=== PATIENT | female | born 1985 | race Two or more races ===

== ENCOUNTER 2023-10-21 19:40 | Inpatient (IN) | payer MEDICAID ==
[~2023-10-21] VITALS: Ht 160 cm; Wt 63.0 kg
[2023-10-21 20:09] LABS: BASOPHILS % (AUTO) 0.9 % (0.0-2.0); EOSINOPHILS % (AUTO) 1.6 % (1.0-6.0); HEMATOCRIT 40.8 % (36-46); HEMOGLOBIN 13.6 g/dL (12.0-16.0); LYMPHOCYTES # (AUTO) 1.3 K/uL (1.0-4.8); LYMPHOCYTES % (AUTO) 25.5 % (22.0-44.0); MEAN CORPUSCULAR HEMOGLOBIN 32.5 pg (26.0-34.0); MEAN CORPUSCULAR HGB CONC 33.4 G/dL (31.0-37.0); MEAN CORPUSCULAR VOLUME 97 fL (80-100); MONOCYTES # (AUTO) 0.4 K/uL (0.1-1.0); MONOCYTES % (AUTO) 8.4 % (2.0-9.0); NEUTROPHILS # (AUTO) 3.1 K/uL (1.8-7.7); NEUTROPHILS % (AUTO) 63.6 % (40.0-70.0); PLATELET COUNT (AUTO) 110 K/uL (150-450); RED BLOOD CELL COUNT(AUTO) 4.19 MIL/uL (4.00-5.20); RED CELL DISTRIBUTION WIDTH 14.4 % (11.5-14.5); WHITE BLOOD COUNT (AUTO) 4.9 K/uL (4.5-11.0)
[2023-10-21 20:27] LABS: ALCOHOL, BLOOD (SERUM) 344 mg/dL (0-10)
[2023-10-21 20:28] LABS: CARBON DIOXIDE 24 mmol/L (22-29); CHLORIDE 101 mmol/L (98-107); SODIUM SERUM 140 mmol/L (136-145)
[2023-10-21 20:29] LABS: ACETAMINOPHEN 21 mcg/mL (10-30); ALANINE AMINOTRANSFERASE 74 U/L (12-78); ALBUMIN 3.8 g/dL (3.4-5.0); ALKALINE PHOSPHATASE 71 U/L (46-116); ANION GAP 15 mmol/L (8-16); ASPARTATE AMINOTRANSFERASE 187 U/L (15-37); BILIRUBIN,TOTAL 0.3 mg/dL (0.1-1.0); CALCIUM, TOTAL 9.1 mg/dL (8.8-10.5); CREATININE 0.62 mg/dL (0.60-1.30); GLOMERULAR FILTR. RATE CALC > 60 mL/min (>60); GLUCOSE,RANDOM 83 mg/dL (70-110); HCG,QUANTITATIVE < 1 mIU/mL (0-6); TOTAL PROTEIN, SERUM 7.9 g/dL (6.4-8.2); UREA NITROGEN, BLOOD 12 mg/dL (7-18)
[2023-10-21 20:41] LABS: SALICYLATE 1.4 mg/dL (2.8-20.0)
[2023-10-21] MEDS: SODIUM CHLORIDE 0.9% 1,000 ML IV ONE ×2 (20:53)
[2023-10-21] MEDS: POTASSIUM CHLORIDE 10% 40 MEQ/30 ML LIQUID UDCUP PO ONE (21:47)
[2023-10-22] MEDS: LORazepam 2 MG TABLET PO PRN (07:31)
[2023-10-22 07:34] LABS: ALCOHOL, URINE DRUG SCREEN POSITIVE (NEGATIVE); AMPHET/METH SCREEN,URINE NEGATIVE (NEGATIVE); BARBITURATE SCREEN, URINE NEGATIVE (NEGATIVE); BENZODIAZEPINES SCREEN,URINE NEGATIVE (NEGATIVE); CANNABINOID SCREEN,URINE NEGATIVE (NEGATIVE); COCAINE SCREEN,URINE NEGATIVE (NEGATIVE); METHADONE SCREEN, URINE NEGATIVE (NEGATIVE); OPIATE SCREEN,URINE NEGATIVE (NEGATIVE); PHENCYCLIDINE SCREEN,URINE NEGATIVE (NEGATIVE)
[2023-10-22 07:41] LABS: APPEARANCE,URINE CLEAR (CLEAR); BILIRUBIN,URINE NEGATIVE (NEGATIVE); COLOR,URINE LIGHT YELLOW (YELLOW); GLUCOSE, URINE (UA) NEGATIVE (NEGATIVE); LEUKOCYTE ESTERASE ,URINE NEGATIVE (NEGATIVE); NITRATE,URINE POSITIVE (NEGATIVE); OCCULT BLOOD,URINE LARGE (NEGATIVE); PH,URINE 5.5 (5.0-8.0); PH,URINE DRUG SCREEN 5.5 (5.0-8.0); PROTEIN,URINE NEGATIVE (NEGATIVE); SPECIFIC GRAVITIY, URINE 1.015 (1.003-1.030); UROBILINOGEN,URINE <=1.0 mg/dL (<=1.0)
[2023-10-22 07:51] LABS: WBC,URINE None Seen /HPF (0-5)
[2023-10-22 07:52] LABS: BACTERIA,URINE Many /HPF (None Seen); SQUAMOUS EPITHELIAL CELL,UR Few /LPF (None Seen)
[2023-10-22 09:34] LABS: ACETAMINOPHEN < 2 mcg/mL (10-30); ALANINE AMINOTRANSFERASE 61 U/L (12-78); ALBUMIN 3.3 g/dL (3.4-5.0); ALKALINE PHOSPHATASE 49 U/L (46-116); ASPARTATE AMINOTRANSFERASE 136 U/L (15-37); BILIRUBIN,TOTAL 0.6 mg/dL (0.1-1.0)
[2023-10-22] MEDS: CEPHALEXIN MONOHYDRATE 500 MG CAPSULE PO SCH (09:57)
[2023-10-22 10:30] LABS: COVID AG,FIA SOURCE NASAL SWAB
[2023-10-22 11:09] LABS: SARS-COV2 (COVID) ANTIGEN,FIA Negative (Negative)
[2023-10-22 19:03] VITALS: BP 135/99; PULSE 98; RESP 18; TEMP 97.7
[2023-10-22 21:31] VITALS: BP 116/71; PULSE 109; RESP 19; TEMP 97.8
[2023-10-22] MEDS: HALOPERIDOL 5 MG TABLET PO PRN (21:48)
[2023-10-22] MEDS: ZOLPIDEM TARTRATE 10 MG TABLET PO PRN (22:29)
[2023-10-23] VITALS (9 sets, daily range): BP systolic 133–155; BP diastolic 79–107; PULSE 74–89; RESP 16–18; TEMP 97.5–98.2; O2SAT 96–99
[2023-10-23] MEDS: MULTIVITAMINS WITH MINERALS, THERAPEUTIC TABLET PO SCH (14:14)
[2023-10-23] MEDS: CITALOPRAM HYDROBROMIDE 20 MG TABLET PO SCH (14:14)
[2023-10-23] MEDS: FOLIC ACID 1 MG TABLET PO SCH (14:14)
[2023-10-23] MEDS: ChlordiazePOXIDE HCL 25 MG CAPSULE PO PRN (14:21)
[2023-10-23] MEDS: CYANOCOBALAMIN 1,000 MCG/ML VIAL IM ONE (14:32)
[2023-10-23] MEDS ORDERED: ONDANSETRON HCL 4 MG TABLET PO PRN (15:15)
[2023-10-23] MEDS ORDERED: LOPERAMIDE HCL 2 MG CAPSULE PO PRN (15:15)
[2023-10-23] MEDS ORDERED: OMEPRAZOLE 20 MG CAPSULE PO PRN (15:15)
[2023-10-23] MEDS ORDERED: ChlordiazePOXIDE HCL 25 MG CAPSULE PO PRN (15:15)
[2023-10-23] MEDS ORDERED: PETROLATUM,WHITE 28 GM JELLY TP PRN (15:15)
[2023-10-23] MEDS ORDERED: IBUPROFEN 600 MG TABLET PO PRN (15:15)
[2023-10-23] MEDS ORDERED: BENZOCAINE/MENTHOL LOZENGE PO PRN (15:15)
[2023-10-23] MEDS ORDERED: MAGNESIUM HYDROXIDE SUSPENSION 30 ML UDCUP PO PRN (15:15)
[2023-10-23] MEDS ORDERED: ALBUTEROL SULFATE HFA 90 MCG/PUFF 8 GM INHALER IH PRN (15:15)
[2023-10-23] MEDS ORDERED: DOCUSATE SODIUM 100 MG CAPSULE PO PRN (15:15)
[2023-10-23] MEDS ORDERED: CloNIDine HCL 0.1 MG TABLET PO PRN (15:15)
[2023-10-23] MEDS ORDERED: MAG HYDROX/ALUMINUM HYD/SIMETH ES 30 ML SUSPENSION UDCUP PO PRN (15:15)
[2023-10-23] MEDS ORDERED: BACITRACIN 28 GM OINTMENT TP PRN (15:15)
[2023-10-23] MEDS ORDERED: ACETAMINOPHEN 325 MG TABLET PO PRN (15:15)
[2023-10-23] MEDS: THIAMINE 100 MG TABLET PO SCH (16:36)
[2023-10-24] VITALS (9 sets, daily range): BP systolic 128–147; BP diastolic 69–113; PULSE 74–102; RESP 1–19; TEMP 97–98; O2SAT 97–99
[2023-10-24] MEDS ORDERED: ChlordiazePOXIDE HCL 25 MG CAPSULE PO PRN ×2 (07:00)
[2023-10-24] MEDS ORDERED: ChlordiazePOXIDE HCL 25 MG CAPSULE PO SCH (09:00)
[2023-10-24] MEDS: ChlordiazePOXIDE HCL 25 MG CAPSULE PO SCH (09:40)
[2023-10-25 08:00] VITALS: BP 144/105; PULSE 95; RESP 17; TEMP 97.8; O2SAT 99
[2023-10-25 22:32] VITALS: BP 125/91; PULSE 76; RESP 18; TEMP 97.5; O2SAT 98
[2023-10-25 22:36] VITALS: BP 125/91; PULSE 76; RESP 18; TEMP 97.5
[2023-10-26] MEDS ORDERED: ChlordiazePOXIDE HCL 10 MG CAPSULE PO PRN ×2 (07:00)
[2023-10-26] MEDS ORDERED: ChlordiazePOXIDE HCL 10 MG CAPSULE PO SCH (09:00)
[2023-10-26] MEDS: ChlordiazePOXIDE HCL 10 MG CAPSULE PO SCH (09:38)
[2023-10-26 10:32] VITALS: BP 123/96; PULSE 88; RESP 18; TEMP 97.7
[2023-10-26 21:21] VITALS: BP 100/71; PULSE 76; RESP 18
[2023-10-27] MEDS ORDERED: ChlordiazePOXIDE HCL 10 MG CAPSULE PO PRN ×2 (07:00)
[2023-10-27 09:42] VITALS: BP 128/87; PULSE 75; RESP 19; TEMP 97.7
[2023-10-27 21:50] VITALS: BP 109/74; PULSE 62; RESP 18; TEMP 97
[2023-10-28 10:16] VITALS: BP 125/92; PULSE 18; RESP 18; TEMP 98.3
[2023-10-28 22:08] VITALS: BP 126/73; PULSE 82; RESP 18; TEMP 97.9
[2023-10-29] MEDS ORDERED: CITA-144 PO (09:11)
== END 2023-10-29 18:07 | disposition home or self-care (01) | DRG 750 ==
LOC: EMS 19:40 → 3EI 10-22 14:52
PROVIDERS: ADMIT Psychiatry & Neurology Psychiatry; ATTEND Psychiatry & Neurology Psychiatry
DX: F25.9 Schizoaffective disorder, unspecified (principal); R45.851 Suicidal ideations; F32.9 Major depressive disorder, single episode, unspecified; T45.0X2A Poisoning by antiallergic and antiemetic drugs, intentional self-harm, initial encounter; E87.6 Hypokalemia; F41.9 Anxiety disorder, unspecified; G47.00 Insomnia, unspecified; N39.0 Urinary tract infection, site not specified; K59.00 Constipation, unspecified; F10.129 Alcohol abuse with intoxication, unspecified; T39.1X2A Poisoning by 4-Aminophenol derivatives, intentional self-harm, initial encounter; Y90.9 Presence of alcohol in blood, level not specified; Z20.822 Contact with and (suspected) exposure to COVID-19; Z79.899 Other long term (current) drug therapy; Y92.89 Other specified places as the place of occurrence of the external cause; Z91.51 Personal history of suicidal behavior
CPT/HCPCS: 70450; 71045; 71100; 80048; 80076; 80307; 81001; 83735; 84702; 85025; 87086; 87186; 93005; 99285; G0480; G0481; J3420; 36415-L1; 36415-TC